=== PATIENT | male | born 1955 | race Caucasian/White ===

== ENCOUNTER → 2016-08-27 | Outpatient (CLI) | payer OTHER ==
--- NOTE | ~2016-08-27 | TH ---
Unit #: [id number] #: [id number] Patient: CORBIN BOBBY [id number] [address] [address] [id number] O MR#: [id number] NAME: CORBIN BOBBY. : 1955 SEX: M STUDY DATE/TIME: 08/27/2016 UNIT: [facility] ROOM: STUDY DESCRIPTION: Attending Physician: Peter Brown M.D. Primary Care Physician: Be Haq M.D. CARDIOLOGY REPORT EXAM Exercise Cardiolite stress test, nuclear portion. PROCEDURE Using technetium 99m labeled Cardiolite, rest and stress SPECT images were obtained. Multiple SPECT images were obtained in various views including horizontal and vertical long axis and short axis views of the left ventricle. Images were obtained by gated SPECT method. The patient was administered 11.88 mCi of Cardiolite at rest. Patient was administered 34.2 mCi of Cardiolite at peak exercise. Total exercise time is 6 minutes and 16 seconds. On the stress images, there is normal perfusion noted. The rest images show normal perfusion. Comparing rest and stress images, there is no stress-induced ischemia noted. The left ventricular ejection fraction is calculated to be 55%. There is no focal wall motion abnormality seen. CONCLUSION 1. No stress-induced ischemia noted. 2. The left ventricular ejection fraction is calculated to be 55%. 3. There is no focal wall motion abnormality seen. 4. Normal exercise Cardiolite stress test. 5. Technically limited study due to patient's body habitus. Clinical correlation is requested. Dictated by... Fina Key TD: 08/27/2016 14:34 JOB #: [id number] Unit #: [id number] #: [id number] Patient: CORBIN BOBBY CARDIOLOGY REPORT Page 1 of 1 X Elodia Barreto MD <ELECTRONICALLY SIGNED> 11/01/16 0656 CARDIOLOGY REPORT
--- NOTE | ~2016-08-27 | ST ---
Unit #: [id number] #: [id number] Patient: CORBIN BOBBY [id number] [facility]. [address] [place], [place] [address] [id number] O MR#: [id number] NAME: CORBIN BOBBY. : 1955 SEX: M STUDY DATE/TIME: 08/27/2016 UNIT: [facility] ROOM: STUDY DESCRIPTION: Attending Physician: Peter Brown M.D. Primary Care Physician: Be Haq M.D. CARDIOLOGY REPORT EXAM EKG portion of an exercise Cardiolite stress test. REASON FOR EXAM History of chest pain with hypertension, hyperlipidemia, and CAD. DISCUSSION Baseline EKG reveals sinus rhythm with a ventricular rate of 88 beats per minute. Poor R-wave progression in the anterior leads. The patient exercised on the treadmill per Jarrell protocol for a total of 6 minutes and 16 seconds, achieving a workload of 7.3 METs. Maximal heart rate was 142 beats per minute which represents 88% of the maximal age-predicted heart rate. The patient's blood pressure was hypertensive with a maximal reading of 196/107 mmHg. Blood pressure improved in recovery to 156/94 mmHg. There were no complaints of chest pain. There were occasional to frequent PVCs. The patient did have some shortness of breath with exercise. There were no ST or T-wave changes to suggest ischemia. The test was stopped due to protocol completion. IMPRESSION 1. Negative EKG portion of exercise Cardiolite stress test. 2. There were no complaints of chest pain but the patient did have some shortness of breath. 3. There were occasional to frequent PVCs noted. 4. There were no ST or T-wave changes to suggest ischemia. 5. Patient was hypertensive but his blood pressure improved in recovery. 6. Please correlate with Cardiolite images. Dictated by... Kaylee Pal APRN for Fina Key TD: 08/27/2016 15:02 JOB #: [id number] Unit #: [id number] #: [id number] Patient: COBRIN BOBBY CARDIOLOGY REPORT Page 1 of 1 X CARDIOLOGY REPORT
== END | disposition home or self-care (01) ==
LOC: CNUC 07:52
DX: R07.9 Chest pain, unspecified (principal); I10 Essential (primary) hypertension; E78.5 Hyperlipidemia, unspecified; I25.10 Atherosclerotic heart disease of native coronary artery without angina pectoris
CPT/HCPCS: 78452; 93017; A9500